=== PATIENT | female | born 1995 | race Hispanic/Latino ===

== ENCOUNTER 2022-11-19 09:04 | Emergency (ER) | payer SELFPAY ==
[~2022-11-19] VITALS: Ht 144.8 cm; Wt 51.3 kg
[2022-11-19] VITALS (8 sets, daily range): BP systolic 99–137; BP diastolic 69–88
[~2022-11-19 09:04] MED LIST: PRE-NATAL PO
[2022-11-19] MEDS ORDERED: BACTRIM DS1 TAB PO (09:31)
[2022-11-19] MEDS ORDERED: CLINDAMYCIN300 M1 PO (09:50)
== END 2022-11-19 10:56 | disposition home or self-care (01) | DRG 603 ==
LOC: ED 09:04
DX: L02.818 Cutaneous abscess of other sites (principal)